=== PATIENT | female | born 1985 | race American Indian/Alaskan Native ===

== ENCOUNTER 2016-12-23 21:05 | Emergency (ER) | payer BC ==
[2016-12-24 04:34] VITALS: BP 140/79
== END 2016-12-23 22:21 | disposition left against medical advice (07) ==
LOC: MW.ED 21:05
DX: Z53.21 Procedure and treatment not carried out due to patient leaving prior to being seen by health care provider (principal)
CPT/HCPCS: 82962; 99284

== ENCOUNTER 2017-02-20 07:31 | Emergency (ER) | payer BC ==
--- NOTE | 2017-02-20 07:50 | EDM.PDOC ---
ED HPI GENERAL MEDICAL PROBLEM - General Chief Complaint: Skin Complaint Stated Complaint: LEFT FOOT PAIN Time Seen by Provider: 02/20/17 07:46 - History of Present Illness INITIAL COMMENTS - FREE TEXT/NARRATIVE: HISTORY AND PHYSICAL: History of present illness: Patient 31-year-old female with history of diabetes who is medically noncompliant and does not check her blood sugars presents with concern of 710 day history of a wound to the dorsal aspect of her left foot but no fever chills nausea vomiting or other complaints. Review of systems: As per history of present illness and below otherwise all systems reviewed and negative. Past medical history: As per history of present illness and as reviewed below otherwise noncontributory. Surgical history: As per history of present illness and as reviewed below otherwise noncontributory. Social history: No reported history of drug or alcohol abuse. Family history: As per history of present illness and as reviewed below otherwise noncontributory. Physical exam: HEENT: Atraumatic, normocephalic, pupils reactive, negative for conjunctival pallor or scleral icterus, mucous membranes moist, throat clear, neck supple, nontender, trachea midline. Lungs: Clear to auscultation, breath sounds equal bilaterally, chest nontender. Heart: S1S2, regular, negative for clicks, rubs, or JVD. Abdomen: Soft, nondistended, nontender. Negative for masses or hepatosplenomegaly. Negative for costovertebral tenderness. Pelvis: Stable nontender. Genitourinary: Deferred. Rectal: Deferred. Extremities: Patient has an excoriated area approximately 2 cm the dorsal aspect of her left forefoot there is minimal erythema no discharge no warmth no fluctuance no induration. Neurovascular exam is unremarkable Neuro: Awake, alert, oriented. Cranial nerves II through XII unremarkable. Cerebellum unremarkable. Motor and sensory unremarkable throughout. Exam nonfocal. Diagnostics: CBC CMP x-ray left foot Therapeutics: None Impression: #1 left foot wound #2 history diabetes #3 medical noncompliance Definitive disposition and diagnosis as appropriate pending reevaluation and review of above. left foot Pain Score (Numeric/FACES): 7 - Related Data Allergies Allergy/AdvReac Type Severity Reaction Status Date / Time azithromycin Allergy Hives Verified 02/20/17 07:37 quinine Allergy Hives Verified 02/20/17 07:37 Home Meds: Home Meds Celecoxib [CeleBREX] 0 mg PO DAILY 02/06/15 [History] Hydroxychloroquine Sulfate [Plaquenil] 1 tab PO BID 02/06/15 [History] Ranitidine [Zantac] 0 mg PO BID 02/06/15 [History] metFORMIN [Glucophage XR] 0 mg PO DAILY 04/02/16 [History] Past Medical History - Past Health History Medical/Surgical History: Denies Medical/Surgical History HEENT History: Reports: Impaired Vision Other HEENT History: wears glasses Musculoskeletal History: Reports: RA Endocrine/Metabolic History: Reports: Diabetes, Type II, Obesity/BMI 30+ - Infectious Disease History Infectious Disease History: Reports: Chicken Pox - Past Surgical History Musculoskeletal Surgical History: Reports: None Social & Family History - Family History Family Medical History: Noncontributory Endocrine/Metabolic: Reports: Diabetes, type II - Tobacco Use Smoking Status *Q: Current Every Day Smoker Years of Tobacco use: 9 Packs/Tins Daily: 1 - Caffeine Use Caffeine Use: Reports: Coffee Caffeine Use Comment: 2-3 daily - Recreational Drug Use Recreational Drug Use: No ED ROS GENERAL - Review of Systems Review Of Systems: ROS reveals no pertinent complaints other than HPI. ED EXAM, SKIN/RASH Exam: See Below (See dictation) Course - Vital Signs Last Recorded V/S: Last Vital Signs Temp 36.4 C 02/20/17 07:38 Pulse 79 02/20/17 07:38 Resp 18 02/20/17 07:38 BP 133/77 02/20/17 07:38 Pulse Ox 99 02/20/17 07:38 - Orders/Labs/Meds Orders: Active Orders 24 hr Category Date Time Status Foot 2V Lt [CR] Stat Exams 02/20/17 07:47 Taken Labs: Laboratory Tests 02/20/17 02/20/17 02/20/17 Range/Units 07:49 07:52 07:52 WBC 15.47 H (4.0-11.0) K/uL RBC 4.11 L (4.30-5.90) M/uL Hgb 11.5 L (12.0-16.0) g/dL Hct 36.5 (36.0-46.0) % MCV 88.8 (80.0-98.0) fL MCH 28.0 (27.0-32.0) pg MCHC 31.5 (31.0-37.0) g/dL RDW Std Deviation 46.4 (28.0-62.0) fl RDW Coeff of Mavis 14 (11.0-15.0) % Plt Count 284 (150-400) K/uL MPV 9.50 (7.40-12.00) fL Neut % (Auto) 70.5 (48.0-80.0) % Lymph % (Auto) 17.2 (16.0-40.0) % [place] % (Auto) 5.4 (0.0-15.0) % Eos % (Auto) 6.7 (0.0-7.0) % Baso % (Auto) 0.2 (0.0-1.5) % Neut # (Auto) 10.9 H (1.4-5.7) K/uL Lymph # (Auto) 2.7 H (0.6-2.4) K/uL [place] # (Auto) 0.8 (0.0-0.8) K/uL Eos # (Auto) 1.0 H (0.0-0.7) K/uL Baso # (Auto) 0.0 (0.0-0.1) K/uL Nucleated RBC % 0.0 /100WBC Nucleated RBCs # 0 K/uL Sodium 138 (136-146) mmol/L Potassium 3.6 (3.5-5.1) mmol/L Chloride 102 (98-110) mmol/L Carbon Dioxide 26 (21-31) mmol/L BUN 8 (6.0-23.0) mg/dL Creatinine 0.7 (0.6-1.5) mg/dL Est Cr Clr Drug Dosing 111.16 mL/min Estimated GFR (MDRD) > 60.0 ml/min Glucose 162 H (60-110) mg/dL POC Glucose 157 H (60-110) mg/dL Calcium 8.6 L (8.8-10.8) mg/dL Total Bilirubin 0.3 (0.1-1.5) mg/dL AST 12 (5-40) IU/L ALT 15 (8-54) IU/L Alkaline Phosphatase 106 (40-150) Total Protein 6.8 (6.0-8.0) g/dL Albumin 3.4 L (3.5-5.0) g/dL Globulin 3.4 (2.0-3.5) g/dL Albumin/Globulin Ratio 1.0 L (1.3-2.8) Departure - Departure Time of Disposition: 09:20 Disposition: Home, Self-Care 01 Condition: Good Clinical Impression: Cellulitis - Discharge Information Forms: ED Department Discharge Additional Instructions: The following information is given to patients seen in the emergency department who are being discharged to home. This information is to outline your options for follow-up care. We provide all patients seen in our emergency department with a follow-up referral. The need for follow-up, as well as the timing and circumstances, are variable depending upon the specifics of your emergency department visit. If you don't have a primary care physician on staff, we will provide you with a referral. We always advise you to contact your personal physician following an emergency department visit to inform them of the circumstance of the visit and for follow-up with them and/or the need for any referrals to a consulting specialist. The emergency department will also refer you to a specialist when appropriate. This referral assures that you have the opportunity for followup care with a specialist. All of these measure are taken in an effort to provide you with optimal care, which includes your followup. Under all circumstances we always encourage you to contact your private physician who remains a resource for coordinating your care. When calling for followup care, please make the office aware that this follow-up is from your recent emergency room visit. If for any reason you are refused follow-up, please contact the [facility] emergency department at and asked to speak to the emergency department charge nurse Augmentin Bactrim as prescribed follow-up primary medical doctor 24-48 hours return as needed as discussed - My Orders Last 24 Hours: My Active Orders 02/20/17 07:47 Foot 2V Lt [CR] Stat - Assessment/Plan Last 24 Hours: My Active Orders 02/20/17 07:47 Foot 2V Lt [CR] Stat
[2017-02-20 08:18] LABS: CHLORIDE,CL 102 mmol/L (98-110); SODIUM,NA 138 mmol/L (136-146)
[2017-02-20 09:43] VITALS: BP 133/66
--- NOTE | 2017-02-22 11:14 | CR ---
EXAM DATE: 02/20/17 PATIENT'S AGE: 32 Patient: KATY AMBROSE Facility: [place], [place] Site . Site : 1985 Study: XRay Extremity Left Foot [id number]/15/2017 8:12:47 AM Ordering Physician: Olivia Weber Final Report: HISTORY: Left foot pain. Soft tissue wound. TECHNIQUE: Two views of the left foot. COMPARISON: No prior. FINDINGS: There is no acute fracture. Bipartite medial sesamoid bone. Mild hallux valgus. Plantar calcaneal spur. Probable os trigonum. No radiopaque foreign body or abnormal soft tissue gas. IMPRESSION: 1. No radiopaque foreign body or soft tissue gas. 2. No acute fracture or bony destructive change to suggest osteomyelitis. Dictated by Kiet Keating MD @ 02/20/2017 8:43:44 AM Dictated by: Kiet Keating MD @ 02/20/2017 08:43:55 (Electronic Signature) Report Signed by Proxy. [facility]
== END 2017-02-20 09:41 | disposition home or self-care (01) ==
LOC: MW.ED 07:31
DX: L03.116 Cellulitis of left lower limb (principal); E11.9 Type 2 diabetes mellitus without complications; F17.210 Nicotine dependence, cigarettes, uncomplicated; E66.9 Obesity, unspecified; Z68.43 Body mass index [BMI] 50.0-59.9, adult; Z88.1 Allergy status to other antibiotic agents; Z88.8 Allergy status to other drugs, medicaments and biological substances; Z79.84 Long term (current) use of oral hypoglycemic drugs; Z79.899 Other long term (current) drug therapy
CPT/HCPCS: 36415; 73620-26-LT; 73620-LT; 80053; 82962; 85025; 99283

== ENCOUNTER 2018-10-12 02:14 | Emergency (ER) | payer BC ==
--- NOTE | 2018-10-12 02:37 | EDM.PDOC ---
ED HPI GENERAL MEDICAL PROBLEM - General Stated Complaint: MEDICAL CLEARANCE Time Seen by Provider: 10/12/18 02:34 Source of Information: Reports: Patient - History of Present Illness INITIAL COMMENTS - FREE TEXT/NARRATIVE: HISTORY AND PHYSICAL: History of present illness: Patient presents for medical screening exam She has a history of diabetes GERD and rheumatoid arthritis on medication She was arrested for felony charge she was out with her friends tonight on a rest she has no trauma and no symptoms no fever nausea vomiting chills sweats no chest pain shortness breath headache dizziness palpitation no bowel or urine symptoms Review of systems: As per history of present illness and below otherwise all systems reviewed and negative. Past medical history: As per history of present illness and as reviewed below otherwise noncontributory. Surgical history: As per history of present illness and as reviewed below otherwise noncontributory. Social history: No reported history of drug or alcohol abuse. Family history: As per history of present illness and as reviewed below otherwise noncontributory. Physical exam: HEENT: Atraumatic, normocephalic, pupils reactive, negative for conjunctival pallor or scleral icterus, mucous membranes moist, throat clear, neck supple, nontender, trachea midline. Lungs: Clear to auscultation, breath sounds equal bilaterally, chest nontender. Heart: S1S2, regular, negative for clicks, rubs, or JVD. Abdomen: Soft, nondistended, nontender. Negative for masses or hepatosplenomegaly. Negative for costovertebral tenderness. Pelvis: Stable nontender. Genitourinary: Deferred. Rectal: Deferred. Extremities: Atraumatic, negative for cords or calf pain. Neurovascular unremarkable. Neuro: Awake, alert, oriented. Cranial nerves II through XII unremarkable. Cerebellum unremarkable. Motor and sensory unremarkable throughout. Exam nonfocal. Diagnostics: [Clinical ] Therapeutics: [ patient does not know her dosing for home medications I have provided metformin 500 mg by mouth twice a day #60 no refill Zantac 150 mg by mouth daily #30 no refill Plaquenil 200 mg by mouth daily #30 no refill] Celebrex 200 mg by mouth daily #30 no refill Impression: [ chronic history of baseline Medical screening exam ] Definitive disposition and diagnosis as appropriate pending reevaluation and review of above. - Related Data Allergies Allergy/AdvReac Type Severity Reaction Status Date / Time azithromycin Allergy Hives Verified 02/20/17 07:37 ibuprofen Allergy Hives Verified 10/12/18 02:27 quinine Allergy Hives Verified 02/20/17 07:37 Home Meds: Home Meds Celecoxib [CeleBREX] 0 mg PO DAILY 02/06/15 [History] Hydroxychloroquine Sulfate [Plaquenil] 1 tab PO BID 02/06/15 [History] Ranitidine [Zantac] 0 mg PO BID 02/06/15 [History] metFORMIN [Glucophage XR] 0 mg PO DAILY 04/02/16 [History] Dextroamphetamine/Amphetamine [Adderall] 0 mg PO DAILY 10/12/18 [History] Hydrocodone/Acetaminophen [Hydrocodon-Acetaminophen 5-325] 0 10/12/18 [History] Venlafaxine [Effexor] 0 mg PO 10/12/18 [History] Past Medical History - Past Health History Medical/Surgical History: Denies Medical/Surgical History HEENT History: Reports: Impaired Vision Other HEENT History: wears glasses Musculoskeletal History: Reports: RA Endocrine/Metabolic History: Reports: Diabetes, Type II, Obesity/BMI 30+ - Infectious Disease History Infectious Disease History: Reports: Chicken Pox - Past Surgical History Musculoskeletal Surgical History: Reports: None Social & Family History - Family History Family Medical History: Noncontributory Endocrine/Metabolic: Reports: Diabetes, type II - Caffeine Use Caffeine Use: Reports: Coffee Caffeine Use Comment: 2-3 daily ED ROS GENERAL - Review of Systems Review Of Systems: See Below ED EXAM, GENERAL - Physical Exam Exam: See Below Course - Vital Signs Last Recorded V/S: Last Vital Signs Temp 96.9 F 10/12/18 02:31 Pulse 96 10/12/18 02:31 Resp 16 10/12/18 02:31 BP 140/98 H 10/12/18 02:31 Pulse Ox 99 10/12/18 02:31 Departure - Departure Time of Disposition: 02:36 Disposition: Home, Self-Care 01 Condition: Good Clinical Impression: Encounter for medical screening examination - Discharge Information Referrals: PCP,None [Primary Care Provider] - Additional Instructions: The following information is given to patients seen in the emergency department who are being discharged to home. This information is to outline your options for follow-up care. We provide all patients seen in our emergency department with a follow-up referral. The need for follow-up, as well as the timing and circumstances, are variable depending upon the specifics of your emergency department visit. If you don't have a primary care physician on staff, we will provide you with a referral. We always advise you to contact your personal physician following an emergency department visit to inform them of the circumstance of the visit and for follow-up with them and/or the need for any referrals to a consulting specialist. The emergency department will also refer you to a specialist when appropriate. This referral assures that you have the opportunity for follow-up care with a specialist. All of these measure are taken in an effort to provide you with optimal care, which includes your follow-up. Under all circumstances we always encourage you to contact your private physician who remains a resource for coordinating your care. When calling for follow-up care, please make the office aware that this follow-up is from your recent emergency room visit. If for any reason you are refused follow-up, please contact the [facility] emergency department at and asked to speak to the emergency department charge nurse.
[2018-10-12 02:46] VITALS: BP 125/80
== END 2018-10-12 02:42 ==
LOC: MW.ED 02:14
DX: Z13.9 Encounter for screening, unspecified (principal); E11.9 Type 2 diabetes mellitus without complications; K21.9 Gastro-esophageal reflux disease without esophagitis; Z79.84 Long term (current) use of oral hypoglycemic drugs; Z79.899 Other long term (current) drug therapy; Z88.6 Allergy status to analgesic agent; Z88.1 Allergy status to other antibiotic agents; Z88.8 Allergy status to other drugs, medicaments and biological substances
CPT/HCPCS: 99283